=== PATIENT | male | born 1990 | race African-American/Black ===

== ENCOUNTER 2021-05-04 00:17 | Emergency (ER) | payer MEDICAID, OTHER ==
[~2021-05-04] VITALS: Ht 188 cm; Wt 74.0 kg
[2021-05-04] MEDS ORDERED: ALBUTEROL (0.083%) 2.5MG/3ML NEB HHN STA (02:14)
[2021-05-04] MEDS ORDERED: PREDNISONE 20MG TABLET PO STA (02:14)
[2021-05-04] MEDS ORDERED: IPRATROPIUM BROMIDE (0.02%) 0.5MG/2.5ML NEB HHN STA (02:14)
[2021-05-04] MEDS ORDERED: KETOROLAC 60MG/2ML VIAL IM ONE (02:45)
[2021-05-04 02:48] VITALS: BP 124/68
[2021-05-04] MEDS ORDERED: ALBU90AE INH (03:39)
[2021-05-04] MEDS ORDERED: PRED10TA MT (03:39)
== END 2021-05-04 03:44 | disposition left against medical advice (07) ==
LOC: ER 00:17
DX: J45.901 Unspecified asthma with (acute) exacerbation (principal); R07.89 Other chest pain; Z53.29 Procedure and treatment not carried out because of patient's decision for other reasons; Z79.899 Other long term (current) drug therapy
CPT/HCPCS: 71045; 93005; 94640; 99283; J1885; J7512; Z7610